=== PATIENT | male | born 1995 | race Two or more races ===

== ENCOUNTER → 2020-10-12 | Outpatient (CLI) | payer BC ==
[~2020-10-12] MED LIST: HYDR-2761 PO
--- NOTE | 2020-10-12 09:10 | RAD ---
EXAM: Abdomen sonogram. HISTORY: Elevated liver enzyme laboratory values. TECHNIQUE: Sonographic imaging of the abdomen was performed. COMPARISON: None. FINDINGS: The exam is limited due to body habitus and bowel gas. The liver is normal in size. There i s hepatic steatosis. No focal hepatic lesion is seen. The gallbladder is unremarkable. The common clarence e duct is obscured. The spleen is normal in size. The kidneys are normal in size. There is no solid o r cystic renal lesion. There is no hydronephrosis. The pancreas is partially obscured. The aorta is n ormal in caliber. The inferior vena cava is patent. IMPRESSION: 1. Hepatic steatosis. 2. Obscured pancreas and common bile duct due to body habitus and bowel gas. 3. No convincing acute sonographic finding. Electronically signed by: Holli Venegas MD (10/12/2020 9:08 AM) [id number]
== END ==
LOC: UNMERGE 08:55 → MERGE 08:55 → US 08:55
PROVIDERS: ATTEND Family Medicine
DX: K76.0 Fatty (change of) liver, not elsewhere classified (principal); K86.89 Other specified diseases of pancreas; K83.8 Other specified diseases of biliary tract; R74.01 Elevation of levels of liver transaminase levels
CPT/HCPCS: 76700

== ENCOUNTER 2021-06-29 10:00 | Emergency (ER) | payer BC ==
[~2021-06-29] VITALS: Ht 165.1 cm; Wt 155.0 kg
[2021-06-29 11:08] LABS: INFLUENZA A PATIENT NEGATIVE (NEGATIVE); INFLUENZA B PATIENT NEGATIVE (NEGATIVE)
--- NOTE | 2021-06-29 11:10 | PHYS DOC ---
Past Medical History Additional Past Medical Histor: seasonal allergies Past Surgical History: No Surgical History Smoking Status: Never Smoker General Adult EDM: Chief Complaint: Congestion HPI: HPI: Patient is a 26 year old male who presents with sore throat, nasal congestion for 2 days. Patient reports associated cough at night. He states he does have seasonal allergies. Patient was vaccinated fully against COVID-19, including a booster, but did not receive a flu shot this year. 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 No one else in the home is showing any symptoms similar to his. He denies fever, chills, generalized weakness, shortness of breath. Patient has no other complaints at this time. Review of Systems: Review of Systems: Constitutional: See HPI Eyes: Denies change in visual acuity, visual field deficits or discharge HENT: See HPI Respiratory: See HPI Cardiovascular: Denies chest pain, palpitations or edema GI: Denies abdominal pain, nausea, vomiting, bloody stools or diarrhea : Denies dysuria or hematuria Musculoskeletal: Denies back pain or joint pain Integument: Denies rash or other skin lesion Neurologic: Denies headache, focal weakness or sensory changes Heart Score: C/O Chest Pain: No Allergies: Allergies: Allergies Coded Allergies Type Severity Reaction Last Updated Verified No Known Drug Allergies 10/12/20 No Physical Exam: PE: Constitutional: Obese, no acute distress, non-toxic appearance. HENT: Normocephalic, atraumatic, bilateral external ears normal, oropharynx moist, nasal drip and pharyngeal erythema appreciated, bilateral turbinates enlarged. Eyes: EOMI, conjunctiva normal, no discharge. Neck: Normal range of motion, no tenderness, supple, no stridor. Skin: Warm, dry, no erythema, no rash. Extremities: No tenderness, no cyanosis, no clubbing, ROM intact, no edema. Neurologic: Alert and oriented x4, normal motor function, normal sensory function, no focal deficits noted. Current Patient Data: Labs: Laboratory Tests Test 06/29/21 10:38 Influenza Type A Antigen Negative (NEGATIVE) Influenza Type B Antigen Negative (NEGATIVE) SARS-CoV-2 Antigen (Rapid) Negative (NEGATIVE) Vital Signs: Vital Signs Date Time Temp Pulse Resp B/P (MAP) Pulse Ox O2 Delivery O2 Flow Rate FiO2 06/29/21 11:49 77 18 157/99 (118) 95 Room Air 06/29/21 10:01 98.3 85 18 176/107 (130) 96 Room Air 98.3 Course & Med Decision Making: Course & Med Decision Making Pertinent Labs and Imaging studies reviewed. (See chart for details) Dragon Disclaimer: Lulu Disclaimer: This electronic medical record was generated, in whole or in part, using a voice recognition dictation system. Departure Departure Impression: Primary Impression: Upper respiratory infection Qualified Codes: J00 - Acute nasopharyngitis [common cold] Additional Impression: Elevated blood pressure reading Disposition: HOME / SELF CARE / HOMELESS Condition: STABLE Referrals: TOSHIA BAKER MD (PCP) Patient Instructions: Upper Respiratory Infection, Adult, [id number] Additional Instructions: Follow the following supportive treatment measures: - Cool mist humidifier with plain water at bedside while you sleep - Mucinex (guaifenesin) per box instructions - Tessalon perles (benzonatate) for cough, especially at night before bed\ - Flonase (fluticasone) nasal spray daily for allergies - Alternate ibuprofen and acetaminophen every four hours for body aches/fever/headache Steps to Take: - Rest as needed. - Choose healthy foods including fruits and vegetables. Drink water throughout the day. - Get plenty of sleep each night. - If you smoke, try to quit. It may ease breathing. - Avoid alcohol. - Keep Others Healthy - The virus can spread to others. Droplets are released every time you sneeze or cough. The droplets can get into the mouth, nose, or eyes of people near you and lead to infection. To lower the chances of spreading COVID-19 to others: During this time: - Avoid public areas, events, or transportation. Do not return to work or school until your doctor has said it is safe to do so. - Call ahead if you need to go to a medical center. Let them know you may have COVID-19. It will help them guide you where to go. They may also ask you to wear a facemask when you come to the office. - If you call for emergency medical services, let them know you may have COVID- 19. Contact your doctor if your recovery is not going as you expect. Get emergency care if you have problems such as: - Trouble breathing with oxygen saturation <90% - Nonstop chest pain or pressure - Changes in awareness, confusion, or problems waking - Lips or face have bluish color - Worsening of symptoms If you think you have an emergency, call for emergency medical services right away. Siga las siguientes medidas de tratamiento de apoyo: - Humidificador de vapor fro con agua corriente al lado de la cama mientras duerme - Mucinex (guaifenesina) segn instrucciones de la caja - Tessalon perles (benzonatato) para la tos, especialmente por la noche antes de acostarse - Flonase (fluticasone) de nariz para las alergias del tiempo - Alternar ibuprofeno y paracetamol cada cuatro horas para britney corporales/fiebre/dolor de ermelinda Pasos a seguir: - Descansar segn sea necesario. - Elija alimentos saludables que incluyan frutas y verduras. Nicole agua sybil todo el da. - Duerma lo suficiente cada noche. - Si fuma, trate de dejarlo. Puede facilitar la respiracin. - Evite el alcohol. - Mantenga a los dems saludables - El virus puede propagarse a otros. Las gotas se liberan cada vez que estornuda o tose. Las gotas pueden entrar en la boca, la nariz o los ojos de las personas cercanas a usted y provocar aaliyah infeccin. Para reducir las posibilidades de propagar el COVID-19 a otras personas: Sybil evelin tiempo: - Evite las reas pblicas, los eventos o el transporte. No regrese al trabajo oa la escuela hasta que centeno mdico le haya dicho que es seguro hacerlo. - Llame con antelacin si necesita acudir a un centro mdico. Hgales saber que puede tener COVID-19. Les ayudar a guiarlo a dnde iroHmero Bang pueden pedirle que use aaliyah mscara facial cuando venga a la oficina. - Si llama a los servicios mdicos de emergencia, infrmeles que puede tener COVID-19. Comunquese con centeno mdico si centeno recuperacin no va merlin esperaba. Obtenga atencin de emergencia si tiene problemas merlin: - Dificultad para respirar con saturacin de oxgeno <90% - Dolor o presin en el pecho sin parar - Cambios en la conciencia, confusin o problemas para despertarse - Los labios o la darya tienen un color azulado - Empeoramiento de los sntomas Si janet que tiene aaliyah emergencia, llame a los servicios mdicos de emergencia de inmediato. Scripts Benzonatate (BENZONATATE) 100 Mg Capsule 1-2 CAP PO HS, #20 CAP Prov: CAESAR JOHNSON 06/29/21 CAESAR JOHNSON Jun 29, 2021 11:10
[2021-06-29] MEDS ORDERED: BENZ-8 PO (11:44)
[2021-06-29 11:49] VITALS: BP 157/99
== END 2021-06-29 11:55 | disposition home or self-care (01) ==
LOC: ER 10:00
DX: J00 Acute nasopharyngitis [common cold] (principal); R03.0 Elevated blood-pressure reading, without diagnosis of hypertension
CPT/HCPCS: 87428; 99283; C9803; U0003